=== PATIENT | female | born 1960 | race African-American/Black ===

== ENCOUNTER 2016-12-19 13:19 | Emergency (ER) | payer MEDICAID, OTHER ==
[~2016-12-19] VITALS: Ht 165.1 cm; Wt 90.7 kg
--- NOTE | 2016-12-19 13:27 | NUR ---
Pt report received from LUANNE Merritt. Pt c/o pain to Right foot. 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 Fluid filled blisters x 3 to plantar aspect of foot. Pt states that she recently had callouses scraped to the blister areas. Skin intact.
--- NOTE | 2016-12-19 13:27 | NUR ---
Patient to ER bed 4 to gown for evaluation. Side rails up. C/O blisters to right foot x 3. Unable to bear weight. States onset was today, denies fever. Report given to Pcao STROUD.
[2016-12-19 13:29] VITALS: BP_SYST 154
--- NOTE | 2016-12-19 13:29 | NUR ---
ER Dr. Hernandez at bedside examining patient.
[2016-12-19] MEDS ORDERED: HYDROcodone/ACETAMIN 10-325 MG TAB PO ONE (13:30)
[2016-12-19] MEDS ORDERED: KETOROLAC TROMETHAMINE 30 MG VIAL IM ONE (13:30)
[2016-12-19 14:36] LABS: BASOPHILS # (AUTO) 0.1 K/uL (0.0-0.2); BASOPHILS % (AUTO) 1.5 % (0.0-2.0); EOSINOPHILS # (AUTO) 0.1 K/uL (0.0-0.4); EOSINOPHILS % (AUTO) 1.9 % (0.0-4.0); HEMATOCRIT 34.6 % (36-48); HEMOGLOBIN 11.5 g/dL (12.0-16.0); LYMPHOCYTES # (AUTO) 1.7 K/uL (1.0-5.5); LYMPHOCYTES % (AUTO) 28.8 % (20.5-51.5); MEAN CORPUSCULAR HEMOGLOBIN 30 pg (27-31); MEAN CORPUSCULAR HGB CONC 33 % (32-36); MEAN CORPUSCULAR VOLUME 91 fL (79.0-98.0); MONOCYTES # (AUTO) 0.3 K/uL (0.0-1.0); MONOCYTES % (AUTO) 5.2 % (1.7-9.3); NEUTROPHILS # (AUTO) 3.6 K/uL (1.8-7.7); NEUTROPHILS % (AUTO) 62.6 % (40.0-70.0); PLATELET COUNT (AUTO) 220 K/uL (130-430); RED BLOOD CELL COUNT(AUTO) 3.82 MIL/uL (4.2-6.2); RED CELL DISTRIBUTION WIDTH 12.9 % (9.0-15.0); WHITE BLOOD COUNT (AUTO) 5.8 K/uL (4.8-10.8)
[2016-12-19 14:41] LABS: CALCIUM 8.3 mg/dL (8.4-11.0); CREATININE 0.84 mg/dL (0.55-1.30); POTASSIUM 3.6 mmol/L (3.5-5.1)
[2016-12-19 14:45] LABS: INR 0.9 (0.8-1.2)
[2016-12-19 14:46] LABS: ALBUMIN 3.2 g/dL (3.4-4.8); TOTAL BILIRUBIN 0.8 mg/dL (0.0-1.0); TOTAL PROTEIN, SERUM 6.8 g/dL (6.4-8.3)
[2016-12-19 15:15] VITALS: BP_SYST 145
--- NOTE | 2016-12-19 15:15 | NUR ---
Patient given written and verbal discharge instructions and verbalizes understanding. ER MD discussed with patient the results and treatment provided. Patient in stable condition. ID arm band removed. Rx of Keflex and [place] given. Patient educated on pain management and to follow up with PMD. Pain Scale 2/10. Opportunity for questions provided and answered.
== END 2016-12-19 15:15 | disposition home or self-care (01) ==
LOC: SED 13:19
DX: M79.671 Pain in right foot (principal); E11.9 Type 2 diabetes mellitus without complications; Z88.0 Allergy status to penicillin; Z88.5 Allergy status to narcotic agent; Z89.421 Acquired absence of other right toe(s)
CPT/HCPCS: 36415; 73620; 80053; 85025; 85610; 85730; 96372; 99285; J1885